=== PATIENT | female | born 1945 | race Caucasian/White ===

== ENCOUNTER 2019-02-20 11:14 | Emergency (ER) | payer OTHER ==
[~2019-02-20] VITALS: Ht 165.1 cm; Wt 68.0 kg
[2019-02-20] MEDS ORDERED: SYNTHROID137 MCG (11:52)
[2019-02-20] MEDS ORDERED: SYNTHROID125 MCG (11:52)
== END 2019-02-20 12:40 | disposition home or self-care (01) ==
LOC: ER 11:14
DX: Z48.02 Encounter for removal of sutures (principal)